=== PATIENT | female | born 1965 | race Caucasian/White ===

== ENCOUNTER 2020-02-22 17:55 | Emergency (ER) | payer BC ==
[~2020-02-22] VITALS: Ht 160 cm; Wt 73.0 kg
[~2020-02-22 17:55] MED LIST: HYDR-4383 PO; OMEP40CA13 PO
[2020-02-22 18:00] VITALS: BP 136/81
[2020-02-22] MEDS ORDERED: CEPH250T PO (18:13)
== END 2020-02-22 18:24 | disposition home or self-care (01) ==
LOC: ER 17:56
DX: S80.862A Insect bite (nonvenomous), left lower leg, initial encounter (principal); L03.116 Cellulitis of left lower limb; Z88.5 Allergy status to narcotic agent; Z88.0 Allergy status to penicillin; Z79.2 Long term (current) use of antibiotics; Z79.899 Other long term (current) drug therapy; W57.XXXA Bitten or stung by nonvenomous insect and other nonvenomous arthropods, initial encounter; Y93.89 Activity, other specified; Y92.89 Other specified places as the place of occurrence of the external cause; Y99.8 Other external cause status
CPT/HCPCS: 99283

== ENCOUNTER 2021-10-25 14:53 | Emergency (ER) | payer BC ==
[~2021-10-25] VITALS: Ht 160 cm; Wt 71.0 kg
[~2021-10-25 14:53] MED LIST changes: -OMEP40CA13 PO; +OMEP40CA21 PO
[2021-10-25 15:06] VITALS: BP 135/83
[2021-10-25] MEDS ORDERED: morphine 4 MG/ML inj SYRINge IM ONE (15:50)
[2021-10-25] MEDS ORDERED: triamcinolone acetonide 40mg/ml inj IM ONE (15:50)
[2021-10-25] MEDS ORDERED: TRAM100C3 PO ×2 (16:12→17:24)
== END 2021-10-25 17:14 | disposition home or self-care (01) ==
LOC: ER 14:54
DX: M25.512 Pain in left shoulder (principal); R11.10 Vomiting, unspecified; X58.XXXA Exposure to other specified factors, initial encounter; Y93.89 Activity, other specified; Y92.89 Other specified places as the place of occurrence of the external cause; Y99.8 Other external cause status
CPT/HCPCS: 96372; 99283; J3301